=== PATIENT | male | born 1995 | race Caucasian/White ===

== ENCOUNTER 2019-07-21 13:24 | Emergency (ER) | payer OTHER ==
--- NOTE | 2019-07-21 13:47 | ED Physician Documentation ---
History of Present Illness - Stated complaint Stated Complaint: HEAD LAC - Chief complaint Chief Complaint: Laceration PD PAST MEDICAL HISTORY - Allergies Allergies/Adverse Reactions: Allergies Allergy/AdvReac Type Severity Reaction Status Date / Time morphine Allergy Hives Verified 07/21/19 13:33 Results - Vitals Vitals: Vital Signs - 24 hr 07/21/19 13:31 Temperature 36.7 C Heart Rate 67 Respiratory 16 Rate Blood Pressure 147/84 H O2 Saturation 97 Oxygen O2 Source Room air
[2019-07-21 13:51] VITALS: BP 147/84
--- NOTE | 2019-07-21 14:02 | ED Physician Documentation ---
PD HPI HEAD INJURY - Stated complaint Stated Complaint: HEAD LAC - Chief complaint Chief Complaint: Laceration - History obtained from History obtained from: Patient - History of Present Illness Mechanism of head injury: Blow Where head injury occurred: Home Timing - onset: Today (just prior to arrival) Location of injury: Top Associated symptoms: No: LOC, AMS, Amnesia, Nausea / vomiting, Neck pain, Paresthesias Recently seen: Not recently seen - Additional information Additional information: Is a 24-year-old who was working on a cover in the crawlspace of their house when he stood up he hit a metal awning right on the top of his head. He did not pass out or get knocked down. Denies neck pain or numbness or tingling into the arms or legs. He felt a little nauseous but no vomiting. They held pressure to it and the bleeding was controlled. His last tetanus vaccination was less than 5 years ago. Is here with his fiance and his mother. Review of Systems GI: reports: Nausea. denies: Vomiting Skin: reports: Laceration (s) (Of the scalp) Musculoskeletal: denies: Neck pain Neurologic: denies: Focal weakness, Numbness, Syncope, LOC PD PAST MEDICAL HISTORY - Allergies Allergies/Adverse Reactions: Allergies Allergy/AdvReac Type Severity Reaction Status Date / Time morphine Allergy Hives Verified 07/21/19 13:33 PD ED PE NORMAL - Vitals Vital signs reviewed: Yes - General General: Alert and oriented X 3, No acute distress, Well developed/nourished - HEENT HEENT: PERRL, Other (Approximate 3 cm linear laceration right in the middle of the top of the scalp that leads right up to the hairline on the forehead. 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, Normal speech, Other (Ambulated into the department without any neurological deficits.) Results - Vitals Vitals: Vital Signs - 24 hr 07/21/19 13:31 Temperature 36.7 C Heart Rate 67 Respiratory 16 Rate Blood Pressure 147/84 H O2 Saturation 97 Oxygen O2 Source Room air Procedures - Laceration (location) Scalp Length in cm: 3 (Very superficial) Wound type: Linear Wound Preparation: Irrigated copiously NS Skin layer closure: Susan (3 susan placed without anesthesia) Other: Patient tolerated well, No complications, Tetanus UTD Complexity: Simple Departure - Departure Disposition: 01 Home, Self Care Clinical Impression: Laceration Condition: Good Instructions: ED Laceration Scalp Stitch Or Stap Follow-Up: DAVID Gan [Provider Group] Comments: May wash the wound starting tomorrow. If it is oozing any blood hold direct pressure. You may apply a thin layer of antibiotic ointment if desired. Susan [place] return here to the emergency department for staple removal.
== END 2019-07-21 14:19 | disposition home or self-care (01) ==
LOC: ED 13:24
DX: S01.01XA Laceration without foreign body of scalp, initial encounter (principal); W22.09XA Striking against other stationary object, initial encounter; Y93.89 Activity, other specified; Y92.008 Other place in unspecified non-institutional (private) residence as the place of occurrence of the external cause
CPT/HCPCS: 12002; 99281

== ENCOUNTER 2022-08-11 08:45 | Outpatient (CLI) | payer OTHER ==
--- NOTE | 2022-08-11 10:27 | MRI Report ---
PROCEDURE: THORACIC SPINE WO INDICATIONS: THORACIC SPINE PAIN TECHNIQUE: Noncontrast sagittal T1 spine echo and T2 fast spin echo, sagittal STIR, axial T1 and T2 fast spin ec ho through the thoracic spine. COMPARISON: None. FINDINGS: Image quality: Diagnostic, with note made of motion artifact. Alignment and Curvature: There is normal bony alignment. Bone Marrow: Marrow is of normal overall signal. No acute vertebral body compression fractures. Spinal Cord: Visualized spinal cord is normal in size and signal. Paraspinous Soft Tissues: No paravertebral masses. Miscellaneous: On axial images, central canal and foramina appear widely patent at all scanned level s. IMPRESSION: Thoracic spine MRI within normal limits. Reviewed by: Tyrel Pérez MD on 08/11/2022 9:26 AM [facility] Approved by: Tyrel Pérez MD on 08/11/2022 9:26 AM [facility] Station ID: [id number]
== END 2022-08-11 08:46 | disposition home or self-care (01) ==
LOC: DI 08:45
PROVIDERS: ATTEND Physician Assistant
DX: M54.6 Pain in thoracic spine (principal)

== ENCOUNTER 2022-08-17 08:32 | Outpatient (CLI) | payer OTHER ==
--- NOTE | 2022-08-17 11:58 | MRI Report ---
PROCEDURE: LUMBAR SPINE WO INDICATIONS: LOW BACK PAIN TECHNIQUE: Noncontrast sagittal T1 spin echo and T2 fast echo, sagittal STIR, axial T1 and T2 fast spin echo thr ough the lumbar spine. In cases with scoliosis, additional coronal T2 fast spin echo may be performe d. COMPARISON: Correlation is made with the overlapping portions of thoracic spine MRI, 08/11/2022 FINDINGS: Image quality: Excellent. Alignment and Curvature: There is normal bony alignment. Bone Marrow: Marrow is of normal overall signal. No acute vertebral body compression fractures. Spinal Cord: Conus medullaris terminates at the L1 level. Visualized cord demonstrates normal signa l and size. Paraspinous Soft Tissues: No paravertebral masses. Along the left aspect of the thecal sac from T12 L1-L2 L3, there is abnormal extradural material seen , which is hypointense on all imaging sequences, as seen on series 2 image 9, series 3 image 9, and o n series 4 image 9. This is also seen on series 5 images 5 through 16. There is involvement of the le ft neuroforamen at the L1-L2 level. T12-L1: Normal in appearance. L1-L2: The disc height and disc signal are well preserved. Mild central canal narrowing is seen, w ith mass effect from the left-sided material at this level. There is moderate left-sided neuroforamin al narrowing. No right-sided neuroforaminal narrowing is seen. L2-L3: No significant abnormality is seen. L3-L4: Mild disc bulge is seen, which is eccentric to the left. There is a left foraminal annular f issure seen, as on series 5 image 26. There is mild left-sided and no right-sided neuroforaminal narr owing. No significant central canal narrowing is seen. L4-L5: The disc height and disc signal are well preserved. Mild disc bulge is seen. Mild to mode rate facet hypertrophy is seen. There is mild left-sided and [id number] right-sided neuroforami nal narrowing. Minimal central canal narrowing is seen. L5-S1: No significant abnormality is seen. IMPRESSION: Abnormal soft tissue is seen along the left aspect of the thecal sac from T12-L1 through L2-L3. This is nonspecific, although please consider a fibrous lesion. Further evaluation is recomme nded, beginning with a contrast-enhanced lumbar spine MRI. A lumbar spine CT may also be helpful for further evaluation. Mild underlying degenerative changes are seen. Reviewed by: Tyrel Pérez MD on 08/17/2022 10:57 AM [facility] Approved by: Tyrel Pérez MD on 08/17/2022 10:57 AM [facility] Station ID: [id number]
== END 2022-08-17 08:33 | disposition home or self-care (01) ==
LOC: DI 08:32
PROVIDERS: ATTEND Physician Assistant
DX: M47.816 Spondylosis without myelopathy or radiculopathy, lumbar region (principal); M51.36 Other intervertebral disc degeneration, lumbar region